=== PATIENT | male | born 1960 | race Caucasian/White ===

== ENCOUNTER 2024-07-18 10:57 | Emergency (ER) | payer OTHER, SELFPAY ==
--- NOTE | ~2024-07-18 | CT_ITS ---
CLINICAL HISTORY: sob CT angiography chest with contrast. 3D Postprocessing. Comparison: None Findings: There is no pulmonary embolism. Heart size is within normal limits. There is no pericardial effusion. Thoracic aorta is normal in diameter without dissection. No enlarged lymph nodes. There is a small hiatal hernia. There is a cluster of small ground-glass opacities in the left upper lobe. There is minimal bilateral dependent atelectasis. Lungs appear otherwise clear. Trachea and central bronchi are widely patent. There is no fracture or suspicious lytic or sclerotic lesion. Limited images of the upper abdomen demonstrate hepatic steatosis. IMPRESSION: 1. No pulmonary embolism. 2. Cluster of small ground-glass opacities in the left upper lobe most likely very mild or resolving pneumonia. 3. Hepatic steatosis. This document has been electronically signed by: Wogn Stein MD on 07/18/2024 22:43:49
--- NOTE | ~2024-07-18 | XR_ITS ---
EXAMINATION: XR CHEST CLINICAL INFORMATION: sob COMPARISON: 07/27/2018. TECHNIQUE: 2 views of the chest were obtained. FINDINGS: The cardiac, hilar, and mediastinal contours are normal. The lungs are clear bilaterally. There is no pneumothorax or pleural effusion. There is no focal osseous or soft tissue abnormality. XR/XR chest 2V IMPRESSION: No active pulmonary disease. Normal exam. Electronically signed by: Hugh Killian MD 07/18/2024 11:29 AM [facility]
[2024-07-18 11:11] VITALS: BP 170/93; PULSE 79; RESP 20; TEMP 36.7; O2SAT 95; BMI 31.3
--- NOTE | 2024-07-18 11:12 | ED.CHESTPAIN ---
HPI - Chest Pain General Chief Complaint: Dyspnea Stated Complaint: chest discomfort SOB Time Seen by Provider: 07/18/24 20:10 Source: patient Mode of arrival: ambulatory Limitations: no limitations History of Present Illness ED Provider: Mattie HPI narrative: 63-year-old male presenting for shortness of breath. Patient states that he has been experiencing proximally 2 weeks of worsening shortness of breath. Symptoms are exacerbated with activity. He also endorses a few nights of waking up in the middle of the night short of breath. He denies chest pain, fevers, chills, recent travel, leg swelling/pain Related Data Previous Rx's ?Medication ?Instructions ?Recorded cefuroxime axetil 500 mg tablet 500 mg PO BID 5 days #10 tabs 07/18/24 doxycycline hyclate 100 mg capsule 100 mg PO BID 5 days #10 caps 07/18/24 Allergies Allergy/AdvReac Type Severity Reaction Status Date / Time No Known Allergies Allergy Verified 07/18/24 11:14 [No Known Allergies*] Review of Systems Review of Systems: Yes all other systems are reviewed and are negative PMFSH Social History Social History Smoked in Last 30 Days: No Use of substances other than those prescribed or required for medical reasons: No Advance Directives: No Advance Directives Information Provided: No Do you have a plan to hurt others: No Plan Physical Exam Vital Signs: Vital Signs: Last Vital Signs Temp 98.0 F 07/18/24 20:52 Pulse 82 07/18/24 22:00 Resp 14 07/18/24 22:00 BP 191/96 H 07/18/24 22:00 Pulse Ox 99 07/18/24 22:00 O2 Del Method Room Air 07/18/24 22:00 BMI result Body Mass Index 31.3 Well-appearing male in no acute distress A&O x4; normal speech and cognition Lungs clear to auscultation bilaterally Normal S1-S2 regular rate and rhythm Abdomen is soft nontender nondistended No lower extremity edema appreciated Course Course Course Narrative: This is a Rapid Medical Exam performed in triage by Sapna Waters PA-C. Full HPI, ROS and PE to be performed by primary ED provider. 63 yo M w/PMHx HTN presenting to the ED c/o chest pain & exertional dyspnea x1-2 wks. States becomes SOB after walking to mailbox. States SOB w/waking him up from sleep. Also reports L shoulder pain. Last traveled in April. PE: nontoxic appearing, talking in complete sentences Plan: EKG, labs, CXR, viral testing Medications Administered Discontinued Medications Generic Name Dose Route Start Last Admin Trade Name Britton PRN Reason Stop Dose Admin Iohexol 100 ml 07/18/24 21:58 07/18/24 21:59 Iohexol 350 Mg/Ml 100 Ml Infus..Btl IV 07/18/24 21:59 65 ml ONCE ONE Administration Medical Decision Making Medical Decision Making MDM Narrative: 63-year-old male presenting for shortness of breath -I am concerned for the following; CHF, viral URI, COVID, flu, pneumonia -I am also considering PE -Labs and imaging studies ordered Lab and imaging interpretation: -normal white count, stable H&H, electrolytes within normal limits, mildly elevated LFTs -BNP 15 -negative troponin x2 -I reviewed patient's chest x-ray and did not appreciate a large consolidation or pneumothorax; radiology impression is negative for acute pathology -no large PE; radiology impression reads right upper lobe pneumonia Ceftriaxone and doxy ordered; cefuroxime and doxy scripts sent to patient's pharmacy On reassessment patient is still well-appearing. I discussed findings with him and gave him follow up instructions and return precautions. I considered admission however patient is well-appearing, not hypoxic, not altered and can be managed outpatient Discharged Lab Data 07/18/24 12:16 07/18/24 12:17 Labs: Lab Results 07/18/24 07/18/24 07/18/24 Range/Units 12:16 12:17 20:26 WBC 6.5 (4.8-10.8) X10*3/uL RBC 5.32 (4.60-5.80) X10*6/uL Hgb 16.7 (14.0-18.0) g/dl Hct 49.3 (42.0-52.0) % MCV 92.7 (80.0-98.0) fL MCH 31.4 (27.0-33.0) pg MCHC 33.9 (31.0-36.0) g/dl RDW 12.3 (11.0-16.0) % Plt Count 229 (160-400) X10*3/uL MPV 9.3 L (9.4-12.4) fL Immature Gran % (Auto) 0.2 (0.0-0.4) % Neut % (Auto) 46.1 (45-73) % Lymph % (Auto) 40.2 H (20-40) % [place] % (Auto) 10.6 (2-11) % Eos % (Auto) 2.0 (0-4) % Baso % (Auto) 0.9 (0-2) % Lymph # (Auto) 2.6 (1.2-4.9) X10*3/uL [place] # (Auto) 0.7 (0.1-1.2) X10*3/uL Eos # (Auto) 0.1 (0.0-0.4) X10*3/uL Baso # (Auto) 0.1 (0.0-0.2) X10*3/uL Abs Immat Gran (auto) 0.01 (0.00-0.03) X10*3/uL Absolute Neuts (auto) 3.0 (2.0-8.3) x10*3/uL Absolute Nucleated RBC 0.000 (0.0-0.012) X10*3/uL Nucleated RBC % (auto) 0.0 (0.0-0.2) /100WBC PT 11.7 (10.9-12.4) SEC INR 1.0 (0.9-1.1) D-Dimer High Sensitivty < 150 NG/ML Sodium 138 (135-145) mmol/L Potassium 4.2 (3.3-5.1) mmol/L Chloride 104 (96-108) mmol/L Carbon Dioxide 24 (22-29) mmol/L Anion Gap 14 (12-20) BUN 13 (9-16) mg/dL Creatinine 0.84 (0.5-1.4) mg/dL Estim Creat Clear Calc 105.7 Estimated GFR > 60 Random Glucose 119 H (60-115) mg/dL Calcium 9.5 (8.4-10.2) mg/dL Magnesium 2.2 (1.6-2.6) mg/dL Total Bilirubin 0.9 (0.0-1.0) mg/dL Direct Bilirubin 0.3 (0.0-0.5) mg/dL AST 47 H (5-37) U/L ALT 60 H (0-40) U/L Alkaline Phosphatase 52 (39-117) U/L Troponin I High Sens < 2.7 < 2.7 (<3.5-35.0) ng/L B-Natriuretic Peptide 15 (<100) pg/mL Total Protein 8.2 H (6.5-8.0) g/dL Albumin 4.3 (3.5-5.0) g/dL Influenza Type A (PCR) NEGATIVE (Negative) Influenza Type B (PCR) NEGATIVE (Negative) RSV RNA Qual (PCR) NEGATIVE (Negative) SARS-CoV-2 RNA (RT-PCR) NEGATIVE (Negative) Discharge Plan Discharge Clinical Impression: Pneumonia Qualifiers: Pneumonia type: due to unspecified organism Laterality: right Lung location: upper lobe of lung Qualified Code(s): J18.9 - Pneumonia, unspecified organism Patient Disposition: Home, Self-Care Instructions: Community Acquired Pneumonia (DC) Additional Instructions: 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 Please follow up with your primary care provider next 24-40 hours for reassessment. If you develop any new or worsening symptoms please return to the emergency department Prescriptions: New cefuroxime axetil 500 mg tablet 500 mg PO BID 5 Days Qty: 10 0RF doxycycline hyclate 100 mg capsule 100 mg PO BID 5 Days Qty: 10 0RF Print Language: [place]
[2024-07-18 12:23] LABS: MANUAL DIFF FLAG NO
[2024-07-18 12:28] LABS: Basophils Absolute Auto 0.1 X10*3/uL (0.0-0.2); Basophils Percent Auto 0.9 % (0-2); Eosinophils Absolute Auto 0.1 X10*3/uL (0.0-0.4); Hematocrit 49.3 % (42.0-52.0); Hemoglobin 16.7 g/dl (14.0-18.0); Imm Gran Abs Auto 0.01 X10*3/uL (0.00-0.03); Imm Gran Pct Auto 0.2 % (0.0-0.4); Lymphocytes Absolute Auto 2.6 X10*3/uL (1.2-4.9); Lymphocytes Percent Auto 40.2 % (20-40); Mean Corpuscular HGB Conc 33.9 g/dl (31.0-36.0); Mean Corpuscular Hemoglobin 31.4 pg (27.0-33.0); Mean Corpuscular Volume 92.7 fL (80.0-98.0); Mean Platelet Volume 9.3 fL (9.4-12.4); Monocytes Absolute Auto 0.7 X10*3/uL (0.1-1.2); Monocytes Percent Auto 10.6 % (2-11); Neutrophils Percent Auto 46.1 % (45-73); Platelet Count 229 X10*3/uL (160-400); Red Blood Count 5.32 X10*6/uL (4.60-5.80); Red Cell Distribution Width 12.3 % (11.0-16.0); White Blood Count 6.5 X10*3/uL (4.8-10.8)
[2024-07-18 12:40] LABS: Alanine Aminotransferase 60 U/L (0-40); Albumin Level 4.3 g/dL (3.5-5.0); Alkaline Phosphatase 52 U/L (39-117); Anion Gap 14 (12-20); Aspartate Amino Transferase 47 U/L (5-37); Bilirubin Direct 0.3 mg/dL (0.0-0.5); Bilirubin Total 0.9 mg/dL (0.0-1.0); Blood Urea Nitrogen 13 mg/dL (9-16); Calcium 9.5 mg/dL (8.4-10.2); Carbon Dioxide 24 mmol/L (22-29); Chloride 104 mmol/L (96-108); Creatinine Clr Calc Pharmacy 105.7; Estimated Glomerular Filt Rate > 60; Glucose Random 119 mg/dL (60-115); Magnesium 2.2 mg/dL (1.6-2.6); Potassium 4.2 mmol/L (3.3-5.1); Sodium 138 mmol/L (135-145); Total Protein 8.2 g/dL (6.5-8.0)
[2024-07-18 12:44] LABS: Prothrombin Time 11.7 SEC (10.9-12.4)
[2024-07-18 12:45] LABS: B Type Natriuretic Peptide 15 pg/mL (<100)
[2024-07-18 12:54] LABS: Troponin-I High Sensitivity < 2.7 ng/L (<3.5-35.0)
[2024-07-18 13:17] LABS: Influenza A PCR NEGATIVE (Negative); Influenza B PCR NEGATIVE (Negative); Resp Syncy Virus RNA Qual PCR NEGATIVE (Negative); SARS COV2 PCR INHOUSE NEGATIVE (Negative)
[2024-07-18 20:52] VITALS: BP 168/85; PULSE 72; RESP 20; TEMP 36.7; O2SAT 97
[2024-07-18 20:52] LABS: D Dimer High Sensitivity < 150 NG/ML
[2024-07-18 21:02] LABS: Troponin-I High Sensitivity < 2.7 ng/L (<3.5-35.0)
[2024-07-18] MEDS: iohexoL 350 MG/ML 100 ML INFUS..BTL IV (21:59)
[2024-07-18 22:00] VITALS: BP 191/96; PULSE 82; RESP 14; O2SAT 99
[2024-07-18] MEDS: cefTRIAXone sodium 1 GM VIAL IVPUSH (23:38)
[2024-07-18] MEDS: Doxycycline Monohydrate 100 MG CAPSULE PO (23:38)
--- NOTE | 2024-07-18 23:48 | PC.NURSE ---
Pt medicated per mar Pt denies pain. Plan of care ongoing.
[2024-07-18 23:51] VITALS: BP 144/86; PULSE 82; RESP 16; TEMP 37; O2SAT 99
== END 2024-07-18 23:53 | disposition home or self-care (01) ==
PROVIDERS: Physician Assistant; Emergency Provider Student in an Organized Health Care Education/Training Program
DX: J18.9 Pneumonia, unspecified organism (principal); R06.02 Shortness of breath; R07.89 Other chest pain; Z03.818 Encounter for observation for suspected exposure to other biological agents ruled out; Z79.899 Other long term (current) drug therapy
CPT/HCPCS: 0241U; 36415; 71046; 71275; 80048; 80076; 83735; 83880; 84484; 85025; 85379; 85610; 96374; 99284; 99285; J0696; Q9967

== ENCOUNTER → 2024-07-18 11:13 | Outpatient (BNV) | payer OTHER, SELFPAY | PROVIDERS: Visit Provider Radiology Diagnostic Radiology | DX: R91.8 Other nonspecific abnormal finding of lung field (principal); K76.0 Fatty (change of) liver, not elsewhere classified | CPT/HCPCS: 71046; 71275 ==